=== PATIENT | male | born 1960 | race Caucasian/White ===

== ENCOUNTER 2017-04-14 10:56 | Emergency (ER) | payer BC ==
--- NOTE | 2017-04-14 11:42 | RAD ---
LEFT KNEE 4 VIEWS: HISTORY: A 56-year-old male with spontaneous left knee pain for 2 weeks without known trauma. FINDINGS: No fracture or dislocation. Mild degenerative changes. IMPRESSION: Unremarkable left knee. POS: C
== END 2017-04-14 12:08 | disposition home or self-care (01) ==
LOC: SCSER 10:56
DX: M25.562 Pain in left knee (principal); I10 Essential (primary) hypertension; G47.30 Sleep apnea, unspecified; Z79.899 Other long term (current) drug therapy

== ENCOUNTER 2017-08-25 15:17 | Inpatient (IN) | payer BC ==
[~2017-08-25 15:17] MED LIST: ISOVUE-370 76%-LOCM 1 ML ONE
[2017-08-25 15:56] LABS: #Eosinphils 0.1 thou/uL (0.0-0.7); #Lymphocytes 1.3 thou/uL (1.20-3.40); #Monocytes 0.9 thou/uL (0.11-0.59); #Neutrophils 7.1 thou/uL (1.40-6.50); %Basophils 0.2 % (0.0-1.0); %Eosinophils 0.7 % (0.0-10.0); %Lymphocytes 13.7 % (21.0-51.0); %Neutrophils 75.4 % (42.0-75.0); Hemoglobin 14.3 g/dL (14.0-18.0); Mean Corpuscular HGB CONC 34.3 g/dL (32.0-36.0); Mean Corpuscular Hemoglobin 32.6 pg (27.0-31.0); Mean Corpuscular Volume 95.1 fl (80.0-94.0); Mean Platelet Volume 7.8 fL (7.4-10.4); Platelet Count 158 thou/uL (130-400); RBC Distribution Width 11.8 % (11.5-14.5); White Blood Cell (WBC) Count 9.4 thou/uL (4.8-10.8)
[2017-08-25] MEDS ORDERED: Fentanyl 100 MCG/2 ML VIAL ONE ×2 (16:04→20:14)
[2017-08-25 16:19] LABS: ALT (SGPT) 28 U/L (8-55); AST (SGOT) 29 U/L (5-34); Alkaline Phosphatase 58 U/L (40-150); Anion Gap 11 mmol/L (10-20); BUN (Urea Nitrogen) 17 mg/dL (8.4-25.7); Bilirubin, Total 2.2 mg/dL (0.2-1.2); Calc. Creatinine Clearance 0 mL/min (70-130); Calcium 8.9 mg/dL (7.8-10.44); Carbon Dioxide 22 mmol/L (22-29); Chloride 106 mmol/L (98-107); Estimated GFR-MDRD Greater than 90; Globulin 3.1 g/dL (2.4-3.5); Glucose 121 mg/dL (70-105); Lipase 4 U/L (8-78); Protein, Total 7.1 g/dL (6.0-8.3); Sodium 135 mmol/L (136-145)
[2017-08-25 16:28] LABS: Bilirubin Small (Negative); Blood, Urine Negative (Negative); Clarity CLEAR (Clear); Glucose, Urine (Dipstick) Negative (Negative); Leukocyte Small (Negative); Nitrite Negative (Negative); Protein, Urine (Dipstick) 30 mg/dL (Neg-Trace); Specific Gravity, Urine 1.031 (1.002-1.036)
[2017-08-25 16:30] LABS: Bacteria/HPF None Seen HPF (None Seen); Hyaline Casts/LPF 4-6 HYALINE CAST LPF (0-3 Hyaline); Pathc Cast-AUWi Flag 0.29 (0-2.49); RBC/HPF 0-3 HPF (0-3); Squamous Epithelial 0-3 HPF (0-3); WBC/HPF 0-3 HPF (0-3)
--- NOTE | 2017-08-25 18:23 | ULT ---
GALLBLADDER ULTRASOUND: HISTORY: Right upper quadrant pain. FINDINGS: Real-time imaging of the right upper quadrant was performed. Exam was technically difficult due to b owel gas and body habitus. The patient was unable to hold his breath. The gallbladder shows no evidence of stones. The common duct is in the 5 to 6 mm range. The liver i s of increased echogenicity with multiple hypoechoic masses. This is highly suspicious for metastati c disease. The right kidney is normal in size and is not obstructed. The pancreas is obscured. IMPRESSION: Fatty changes of the liver with hypoechoic masses, highly suspicious for metastatic disease. CT is r ecommended for assessment. Findings telephoned to Dr. Carrillo. CODE CR POS: [facility]
--- NOTE | 2017-08-25 18:46 | CT ---
ABDOMEN CT WITH CONTRAST: PELVIS CT WITH CONTRAST: HISTORY: Abdominal pain. COMPARISON: 12/26/2009 CORRELATION: Gallbladder ultrasound from 08/25/2017. TECHNIQUE: Abdomen and pelvis CT is performed with IV contrast. Enteric contrast was administered. Coronal ref ormatted images are submitted for interpretation. FINDINGS: Dependent atelectatic changes. Heart size is normal. No pericardial effusion. The descending thora cic aorta and abdominal aorta have a normal caliber. No periaortic fat stranding. Symmetric attenua tion of the psoas muscles. Intrahepatic and extrahepatic portal vein is patent. Unremarkable gallbl adder. Spleen, pancreas, and adrenal glands have appropriate enhancement. Symmetric enhancement of the kidneys. Bilaterally, no obstructive uropathy. No gastrohepatic, retrocrural, or periportal lymphadenopathy. No mesenteric mass, free air, or free fluid. There is a mass in the central abdominal mesentery, mary jo suring 3.4 x 2.3 cm, with small punctate calcification. The margins are somewhat irregular. There a re multiple enhancing lesions throughout the liver, which are accentuated by the generalized diffuse fatty infiltration of the liver. An enlarged off premise service representative lesion in the right hepatic lobe measure s 2.4 x 2.5 cm. The overall numbers of lesions are too small to characterize. Limited evaluation of the alimentary canal. Gastric mucosa, duodenum, and multiple normal caliber sm all bowel loops are noted. The ileocecal junction is normal. An appendix is not appreciated. There is scattered fecal material throughout a nondistended, nondilated colon. No colonic obstruction. O ccasional diverticulosis without evidence of diverticulitis. PELVIS: No mass, lymphadenopathy, free air, or free fluid. The urinary bladder is unremarkable. Mi ld hypertrophy of the prostate gland. No lytic or blastic lesions of the osseous structures. IMPRESSION: 1. Diffuse enhancing masses throughout the liver suggesting multifocal malignant lesions, worrisome for metastases until proven otherwise. These lesions are noted in an underlying liver that has exten sive hepatic steatosis. 2. Irregular, hypodense mass in the central abdominal mesentery, with a small punctate calcification . Malignant lesions versus enlarged metastatic lymph nodes is a differential consideration. POS: [facility]
[2017-08-25] MEDS ORDERED: Lisinopril/Hydrochlorothiazide 10 mg/12.5 mg Tablet PO SCH (20:00)
[2017-08-25] MEDS ORDERED: hydrALAZINE 20 MG/ML VIAL ONE (20:54)
[2017-08-25] MEDS ORDERED: hydrALAZINE 20 MG/ML VIAL SLOW IVP PRN (21:59)
[2017-08-25] MEDS ORDERED: cloNIDine 0.1 MG TAB PO PRN (21:59)
[2017-08-25] MEDS ORDERED: Ondansetron HCl/PF 4 MG/2 ML Vial IVP PRN ×2 (21:59→22:01)
[2017-08-25] MEDS ORDERED: Ondansetron ODT 4 MG TAB PO PRN (21:59)
[2017-08-25] MEDS ORDERED: Acetaminophen 500 MG TAB PO PRN (21:59)
[2017-08-25] MEDS ORDERED: Ondansetron ODT 4 MG TAB SL PRN (22:01)
[2017-08-25] MEDS ORDERED: Fentanyl 100 MCG/2 ML VIAL SLOW IVP PRN (22:02)
[2017-08-25] MEDS: Sodium Chloride 0.9% 1,000 ML IV SCH (22:28)
[2017-08-25 23:09] VITALS: BMI 41.3
[2017-08-26 04:41] LABS: ALT (SGPT) 24 U/L (8-55); AST (SGOT) 21 U/L (5-34); Albumin 3.6 g/dL (3.5-5.0); Alkaline Phosphatase 51 U/L (40-150); Anion Gap 8 mmol/L (10-20); BUN (Urea Nitrogen) 13 mg/dL (8.4-25.7); Bilirubin, Total 1.8 mg/dL (0.2-1.2); Calc. Creatinine Clearance 197 mL/min (70-130); Calcium 8.7 mg/dL (7.8-10.44); Carbon Dioxide 25 mmol/L (22-29); Chloride 106 mmol/L (98-107); Estimated GFR-MDRD Greater than 90; Globulin 2.9 g/dL (2.4-3.5); Glucose 117 mg/dL (70-105); Potassium 3.7 mmol/L (3.5-5.1); Protein, Total 6.5 g/dL (6.0-8.3); Sodium 135 mmol/L (136-145)
[2017-08-26 05:15] LABS: Eosinophils 1 % (0-10); Hemoglobin 13.4 g/dL (14.0-18.0); Lymphocytes 14 % (21-51); MDiff Complete? YES; Macrocytosis SLIGHT = 6-15 cells (100X) (0-5/hpf); Mean Corpuscular HGB CONC 34.1 g/dL (32.0-36.0); Mean Corpuscular Hemoglobin 32.5 pg (27.0-31.0); Mean Corpuscular Volume 95.4 fl (80.0-94.0); Mean Platelet Volume 7.8 fL (7.4-10.4); Monocytes 13 % (0-10); Neutrophil 65 % (42-75); PLT Morphology Comment Appears Adequate; Platelet Count 162 thou/uL (130-400); RBC Distribution Width 11.8 % (11.5-14.5); Reactive Lymphocytes 7 % (0-10); Red Blood Cell (RBC) Count 4.12 mill/uL (4.70-6.10); White Blood Cell (WBC) Count 8.2 thou/uL (4.8-10.8)
--- NOTE | 2017-08-26 05:58 | HP ---
DATE OF ADMISSION: 08/26/2017 PRIMARY CARE PROVIDER: Dr. Richey. CHIEF COMPLAINT: Abdominal pain. HISTORY OF PRESENT ILLNESS: This is a 56-year-old male, who presents to [facility] complaining of abdominal and back pain of 2-3 days' duration. The patient states he noticed increasing back pain progressing to abdominal pain in the last 24 hours without trauma, injur y, nausea or vomiting. The patient denied any recent travel history or change to bowel habits. The patient denied any weight loss or documented fever; however, he does states he feels warm when the ai r temperature is cool. The patient denied any lower extremity swelling or shortness of breath. The patient described the pain as sharp, in the right upper quadrant region with radiation to the back. The patient rated the pain as 8/10, intermittent and relieved without specific home remedies. The pa tient states he underwent colonoscopy 2-3 years prior to this evaluation without noted history of col on cancer. The patient denies any dysuria or frequent urinary tract infections. In the emergency ro om, the patient underwent comprehensive evaluation including CT of the abdomen and pelvis showing mul tiple hepatic lesions as well as some mesenteric lesion concerning for malignant process. Abdominal ultrasound also obtained on 08/25/2017 showed fatty changes of the liver with hypoechoic masses suspi cious for metastatic process in the liver. Emergency room treatment include fentanyl x2 doses in add ition to lisinopril/HCTZ and intravenous normal saline x1 liter. The patient was transferred to the medical oncology unit for further evaluation. PAST MEDICAL HISTORY: 1. Hypertension. 2. Obstructive sleep apnea. PAST SURGICAL HISTORY: 1. Status post ankle reconstruction. 2. Status post appendectomy. 3. Status post hernia repair x2. CURRENT MEDICATIONS: Lisinopril/HCTZ 10/12.5 mg 1 tab p.o. daily. ALLERGIES: MORPHINE SULFATE and BEE STINGS, causing anaphylaxis. FAMILY HISTORY: No inheritable diseases per patient report. SOCIAL HISTORY: The patient is , resides in [place], [place]. 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 Social alcohol use. No tobacco or illicit drug use. REVIEW OF SYSTEMS: The following complete review of systems was negative, unless otherwise mentioned in the HPI or below: Constitutional: Weight loss or gain, ability to conduct usual activities. Sk in: Rash, itching. Eyes: Double vision, pain. ENT/Mouth: Nose bleeding, neck stiffness, pain, te nderness. Cardiovascular: Palpitations, dyspnea on exertion, orthopnea. Respiratory: Shortness of breath, wheezing, cough, hemoptysis, fever or night sweats. Gastrointestinal: Poor appetite, abdom inal pain, heartburn, nausea, vomiting, constipation, or diarrhea. Genitourinary: Urgency, frequenc y, dysuria, nocturia. Musculoskeletal: Pain, swelling. Neurologic/Psychiatric: Anxiety, depressio n. Allergy/Immunologic: Skin rash, bleeding tendency. Otherwise negative except as stated per HPI. PHYSICAL EXAMINATION: VITAL SIGNS: On admission, blood pressure 192/97, pulse 97, respiratory rate 20, temperature 98.7, O 2 saturation 97% on room air. GENERAL APPEARANCE: This is a 56-year-old male, alert and oriented x3, pleasant, in no acu te distress. HEENT: Pupils are equal, round, and reactive to light and accommodation. Extraocular muscles are in tact. No scleral icterus, no conjunctival injection. Nares patent. OP is clear. Oral mucosa dry a ppearing. NECK: Supple, no cervical adenopathy, no thyromegaly, no carotid bruits, no JVD appreciated. Cervic al spine with full active and passive range of motion. CHEST: Lungs are clear to auscultation bilaterally. CARDIOVASCULAR: S1, S2 with tachycardia. ABDOMEN: Abdomen is obese. Bowel sounds are positive in all four quadrants. There is no palpable m ass. No rebound or guarding appreciated. Mild tenderness to palpation in the right upper quadrant. EXTREMITIES: Warm and dry with fair turgor. No clubbing, cyanosis or asymmetric edema appreciated. Pulses palpable distally at the dorsalis pedis, posterior tibial, and popliteal arteries bilaterally . Capillary refill less than 2 seconds. NEUROLOGIC: Cranial nerves II-XII are grossly intact. No focal or lateralizing signs appreciated. PERTINENT LABORATORY AND X-RAY FINDINGS: Basic metabolic profile within normal limits. Calcium 8.9, total bilirubin 2.2, AST 29, ALT of 28, alkaline phosphatase 58, albumin 4.0, lipase 4. CBC showed a white blood cell count of 9.4, hemoglobin 14, hematocrit 42, MCV 95, platelet count 158 with 75% ne utrophils. Urinalysis positive for protein and small leukocyte esterase. Abdominal ultrasound dated 08/25/2017 showed fatty changes in the liver with multiple hypoechoic masses, suspicious for metasta tic process. CT of the abdomen and pelvis dated 08/25/2017 showed diffuse enhancing masses throughou t the liver, suggesting multifocal malignant process. Extensive hepatic steatosis. Central abdomina l mesenteric mass noted. EKG dated 08/25/2017 by my interpretation shows sinus mechanism with heart rates in the 90s. Normal R-wave progression noted in the precordial leads. Normal axis. No acute S T-T wave changes appreciated. ASSESSMENT AND PLAN: 1. Intractable abdominal pain. The patient will be admitted to the oncology unit. Suspect patient' s presentation secondary to multiple hepatic lesions. Continue fentanyl 50 mcg IV q.2 hours p.r.n. p ain. Continue supportive measures. Consult GI Service for evaluation and comanagement. 2. Hepatic masses. Initial imaging including CT and ultrasound showing evidence of diffuse hepatic lesions concerning for metastatic process. We will consult GI Service for evaluation and considerati on of biopsy. 3. Hypertension. Resume home regimen to include lisinopril/HCTZ 10/12.5 mg daily. Continue serial blood pressure monitoring. 4. Hyperbilirubinemia. Suspect secondarily to #2. Monitor serial total bilirubin. 5. Prophylaxis. Sequential compression devices while in bed. Pepcid 20 mg IV q.12 hours. 6. Code status is FULL. Surrogate medical decision maker is patient's spouse.
[2017-08-26] MEDS: Famotidine 20 MG TAB PO SCH ×2 (08:11→20:16)
[2017-08-26] MEDS: Sodium Chloride 0.9% 1,000 ML IV SCH ×2 (08:12→16:33)
[2017-08-26 10:28] LABS: HBCM Index 0.07 S/CO (0-0.79); HBSAg Index 0.58 S/CO (0-0.99); Hep A IgM AB Non-Reactive (NonReactive); Hep B Surf Ag Non-Reactive S/CO (NonReactive); Hep C IgG Ab Non-Reactive (NonReactive); Hepatitis B Core IGM Abs Non-Reactive (NonReactive)
--- NOTE | 2017-08-26 11:09 | CT ---
CT OF CHEST PERFORMED WITH INTRAVENOUS CONTRAST ENHANCEMENT: HISTORY: Multiple liver masses noted on recent CT of the abdomen. Evaluation for possible primary source. FINDINGS: The lungs show some bibasilar atelectatic change. No pulmonary nodules are identified. No significa nt mediastinal or hilar adenopathy. No significant axillary adenopathy. No lytic or blastic bony change. Fatty changes of the liver with numerous small masses are noted. The right and left adrenal glands a re normal. IMPRESSION: No evidence of any pulmonary masses to be explained as a primary source of patient's multiple liver l esions. In reviewing the previous CT of the abdomen, the presence of a calcified mesenteric mass in conjunction with these liver masses would raise the possibility of carcinoid. Clinical correlation a s to whether the patient has carcinoid-type symptoms. POS: [facility]
[2017-08-26] MEDS: Fentanyl 100 MCG/2 ML VIAL SLOW IVP PRN ×2 (13:39→17:13)
[2017-08-26] MEDS ORDERED: Iopamidol 370 76% 100 ML VIAL ONE (15:06)
[2017-08-26 18:38] LABS: INR-International Normal Ratio 1.1; Prothrombin Time 13.9 SEC (12.0-14.7)
--- NOTE | 2017-08-26 20:52 | CON ---
DATE OF CONSULTATION: 08/26/2017 REASON FOR CONSULTATION: Liver lesions. HISTORY OF PRESENT ILLNESS: Mr. Lopez is a pleasant 56-year-old male who presented to the emergency room for acute onset abdominal pain that started approximately 2-3 days, it is located in the right upper quadrant, was not associated with eating, nausea, vomiting, diarrhea. He had an abdo moni ultrasound performed which showed hypoechoic mass is suspicious for metastatic disease. He the n had a CT of the abdomen and pelvis which showed multiple lesions throughout the liver. There was a right hepatic lobe lesion measuring 2.4 x 2.5 cm. There was also an irregular mass in the central a bdominal mesentery consistent with carcinoid. The patient had a colonoscopy approximately 4 years ag o which was normal. He denies any chest pain, shortness of breath. No loss of appetite, early satie ty or weight loss. PAST MEDICAL HISTORY: 1. Hypertension. 2. Sleep apnea. PAST SURGICAL HISTORY: 1. Ankle repair. 2. Appendectomy. 3. Hernia repair. HOME MEDICATIONS: Lisinopril/hydrochlorothiazide. ALLERGIES: MORPHINE. FAMILY HISTORY: No history of carcinoid. SOCIAL HISTORY: . Social alcohol. No tobacco or illicit drug use. REVIEW OF SYSTEMS: Twelve-point review of systems is negative except for noted in HPI. PHYSICAL EXAMINATION: VITAL SIGNS: Temperature is 98.1, pulse is 81, respiratory rate 18, BP is 165/107. He is 94% on hailey m air. GENERAL: This is an obese male in no acute distress. HEENT: Normocephalic, atraumatic. Pupils are equal and reactive to light. NECK: Supple. CARDIOVASCULAR: Regular rate and rhythm. LUNGS: Clear. ABDOMEN: Obese, nontender, bowel sounds are positive. EXTREMITIES: No clubbing, cyanosis or edema. SKIN: No rash. HEMATOLOGIC: No petechia or purpura. NEUROLOGIC: Nonfocal. PSYCHIATRIC: The patient is alert and oriented and appropriate. PERTINENT LABORATORY AND X-RAYS: Current WBCs are 8.2, hemoglobin 13.4, hematocrit 39.3, platelet co unt is 162,000. He has got 75% neutrophils, 13% lymphocytes. Sodium is 135, potassium 3.7, chloride 106, CO2 is 25, BUN is 13, creatinine 0.87, calcium is 8.7, bilirubin is 1.8, AST is 21, ALT is 24, alkaline phosphatase is 51. Serum total protein is 6.5, albumin 3.6, globulin 2.9, lipase is 4. Uri ne is negative for bacteria. Hepatitis panel is normal. Chest CT was negative for any mass or lesio ns in the lungs. He did confirm the liver lesions. IMPRESSION: 1. Metastatic liver lesion. 2. Mesenteric mass. DISCUSSION: The case was discussed with radiologist, Dr. Duarte. Patient will have a CT-guided bi opsy of the liver lesion tomorrow morning, further recommendations will be based on those results. Lyssa I just has been consulted to see the patient. Thank you for the consult.
--- NOTE | 2017-08-26 21:03 | CON ---
DATE OF CONSULTATION: 08/26/2017 GI INPATIENT CONSULTATION NOTE REQUESTING PHYSICIAN: Dr. Uribe. REASON FOR CONSULTATION: Liver masses. HISTORY OF PRESENT ILLNESS: Tam Lopez is a 56-year-old man previously seen by my GI colleague, Dr. Elpidio Alvarado. Back in 08/2013, Dr. Alvarado performed EGD and colonoscopy. He had findings of LA grade B esophagitis with otherwise normal EGD and 3 small colon polyps, which were all removed. The patient relates no chronic gastrointestinal symptoms. For several months, he has had some back pain which was never real severe, but now just over the past 2-3 days, he had an acute worsening of his back pain and it began to involve his right upper quadrant, it is sharp and nearly constant and o ften severe. There has been no associated fever or weight loss. No nausea or vomiting and no change in bowel habits, melena or hematochezia. In the Emergency Department, he underwent imaging evaluati on. Abdominal ultrasound demonstrated multiple liver masses and so a CT of the abdomen and pelvis wa s performed and this demonstrated not only multiple liver lesions, but also a central mesenteric mass measuring 3.4 cm, suspicious for carcinoid tumor. The patient is currently receiving fentanyl with modest efficacy for his pain. He has been evaluated by Oncology and CT-guided biopsy of one of the l iver mass is planned for tomorrow. REVIEW OF SYSTEMS: Full review of systems including constitutional, head, eyes, ears, nose, throat, GI, , cardiovascular, respiratory, musculoskeletal, and neurologic systems is negative except as no silvestre in the HPI. PAST MEDICAL HISTORY: Hypertension, obesity, obstructive sleep apnea, appendectomy, hernia repair, c olon polyps removed in 08/2013, esophagitis on EGD in 08/2013. ALLERGIES: MORPHINE and BEE STINGS. OUTPATIENT MEDICATIONS: Lisinopril/hydrochlorothiazide. FAMILY HISTORY: Noncontributory. SOCIAL HISTORY: Alcohol use is social. No tobacco or drug use. PHYSICAL EXAMINATION: VITAL SIGNS: Temperature 98.1, pulse 81, blood pressure 165/107, 94% oxygen saturation on room air. GENERAL: A 56-year-old man sitting up in bed comfortably, in mild distress from abdominal pain. SKIN: No jaundice, no rash visible or palpable. EYES: No scleral icterus. Extraocular movements intact. ENT: Mucous membranes moist, no oral lesions. LYMPH: No submandibular, supraclavicular lymphadenopathy. THYROID: Nontender to palpation. HEART: Regular rate and rhythm. LUNGS: Clear to auscultation bilaterally. ABDOMEN: Obese, bowel sounds present, soft. Tender to palpation in the right upper quadrant. No gu arding, rebound tenderness. EXTREMITIES: No peripheral edema. VESSELS: Radial pulses 2+ bilaterally. NEUROLOGICAL: Cranial nerves II-XII intact bilaterally. No focal deficits. LABORATORY STUDIES: WBC 8.2, hemoglobin 13.4, platelets 162, BUN 13, creatinine 0.83, total bilirubi n 1.8, alkaline phosphatase 51, AST 21, ALT 24, albumin 3.6. Viral hepatitis serology is negative. IMAGING STUDIES: Abdominal ultrasound showed fatty liver and multiple masses suspicious for metastat ic disease. Gallbladder was normal. CT of the abdomen and pelvis demonstrated a central mesenteric mass measuring 3.4 x 2.3 cm with calcification suspicious for possible carcinoid tumor. There are mu ltiple liver lesions including one large lesion in the right hepatic lobe measuring 2.5 cm. Bowel ap pears normal. CT chest demonstrated no pulmonary mass. ASSESSMENT AND PLAN: 1. Mesenteric mass, concerning for possible carcinoid tumor. 2. Multiple liver masses, consistent with metastatic liver disease. 3. Right upper quadrant pain. The patient's overall presentation and imaging findings are most susp icious for a carcinoid tumor with metastatic disease. Tumor markers are pending and I have added CEA to this. Given that he had essentially negative EGD and colonoscopy in 2014, and the appearance on CT, I do not think there would be much to be gained by repeating endoscopic examination at this time. I appreciate Oncology recommendations and they have arranged for a CT guided biopsy of one of his l iver lesions tomorrow, and I agree with this plan. GI will follow along. Thank you for the consultation. Please call with questions or concerns.
--- NOTE | 2017-08-27 00:19 | PDOC.PN ---
- Subjective Encounter Start Date: 08/26/17 Encounter Start Time: 11:00 Subjective: pt up in bed still has pain to his RUQ - Objective Resuscitation Status: Resuscitation Status FULL:Full Resuscitation Vital Signs & Weight: Vital Signs (12 hours) Temp Pulse Resp BP Pulse Ox 08/26/17 23:39 99 F 87 16 166/83 H 93 L 08/26/17 19:53 98.2 F 73 16 94 L 08/26/17 19:29 98.2 F 73 16 173/92 H 94 L 08/26/17 16:32 81 08/26/17 16:10 98.2 F 78 22 H 158/92 H 94 L 08/26/17 12:20 98.1 F 81 18 165/107 H 94 L Weight Weight 305 lb 4 oz I&O: 08/25/17 08/26/17 08/27/17 06:59 06:59 06:59 Intake Total 240 877 Balance 240 877 Result Diagrams: 08/26/17 04:11 08/26/17 04:11 Dx/Plan - Plan * .
[2017-08-27] MEDS: Sodium Chloride 0.9% 1,000 ML IV SCH ×2 (04:09→15:01)
[2017-08-27 05:47] LABS: #Eosinphils 0.3 thou/uL (0.0-0.7); #Lymphocytes 1.4 thou/uL (1.20-3.40); #Monocytes 0.9 thou/uL (0.11-0.59); #Neutrophils 4.8 thou/uL (1.40-6.50); %Basophils 0.4 % (0.0-1.0); %Eosinophils 3.6 % (0.0-10.0); %Lymphocytes 19.3 % (21.0-51.0); %Monocytes 11.6 % (0.0-10.0); %Neutrophils 65.1 % (42.0-75.0); Hemoglobin 13.6 g/dL (14.0-18.0); Mean Corpuscular HGB CONC 32.8 g/dL (32.0-36.0); Mean Corpuscular Hemoglobin 31.3 pg (27.0-31.0); Mean Corpuscular Volume 95.4 fl (80.0-94.0); Mean Platelet Volume 7.9 fL (7.4-10.4); Platelet Count 173 thou/uL (130-400); RBC Distribution Width 11.7 % (11.5-14.5); Red Blood Cell (RBC) Count 4.34 mill/uL (4.70-6.10); White Blood Cell (WBC) Count 7.3 thou/uL (4.8-10.8)
[2017-08-27 05:55] LABS: INR-International Normal Ratio 1.1; Prothrombin Time 14.1 SEC (12.0-14.7)
[2017-08-27 05:56] LABS: PTT 32.6 SEC (22.9-36.1)
--- NOTE | 2017-08-27 07:46 | PDOC.PN ---
- Subjective Encounter Start Date: 08/27/17 Encounter Start Time: 07:44 Subjective: adequate analgesia for pain - Objective Resuscitation Status: Resuscitation Status FULL:Full Resuscitation MAR Reviewed: Yes Vital Signs & Weight: Vital Signs (12 hours) Temp Pulse Resp BP Pulse Ox 08/27/17 07:31 97.6 F 72 20 171/97 H 94 L 08/27/17 04:18 98.1 F 84 16 142/93 H 94 L 08/26/17 23:39 99 F 87 16 166/83 H 93 L 08/26/17 19:53 98.2 F 73 16 94 L Weight Weight 306 lb 6 oz I&O: 08/26/17 08/27/17 08/28/17 06:59 06:59 06:59 Intake Total 240 2327 Balance 240 2327 Result Diagrams: 08/27/17 05:17 08/26/17 04:11 Phys Exam - Physical Examination Respiratory: no rales Cardiovascular: RRR, no significant murmur Gastrointestinal: soft, non-tender Musculoskeletal: no edema Dx/Plan (1) Abdominal pain Code(s): R10.9 - UNSPECIFIED ABDOMINAL PAIN Status: Acute Qualifiers: Abdominal location: generalized Qualified Code(s): R10.84 - Generalized abdominal pain (2) Liver metastases Code(s): C78.7 - SECONDARY MALIG NEOPLASM OF LIVER AND INTRAHEPATIC BILE DUCT Status: Acute (3) HTN (hypertension) Code(s): I10 - ESSENTIAL (PRIMARY) HYPERTENSION Status: Acute Qualifiers: Hypertension type: essential hypertension Qualified Code(s): I10 - Essential (primary) hypertension (4) Abdominal mass Code(s): R19.00 - INTRA-ABD AND PELVIC SWELLING, MASS AND LUMP, UNSP SITE Status: Acute - Plan cont analgesia -: Bx today -: FU post Bx * .
[2017-08-27] MEDS: Famotidine 20 MG TAB PO SCH (08:03)
[2017-08-27 09:51] LABS: Alpha-Fetoprotein,Tumor Marker Less than 2.0 ng/mL (0.89-8.78); Cancer Antigen - CA 125 14.4 U/mL (Less than 35)
[2017-08-27] MEDS ORDERED: Fentanyl 100 MCG/2 ML VIAL ONE (10:41)
[2017-08-27] MEDS ORDERED: Midazolam HCl 2 mg/2 ml Vial ONE (10:41)
[2017-08-27 12:09] VITALS: BP 154/99; TEMP 98
--- NOTE | 2017-08-27 13:39 | CT ---
CT GUIDED LIVER MASS BIOPSY: Date: 08/27/17 CONSCIOUS SEDATION: 2 mg Versed, IV. 100 mcg Fentanyl, IV> FINDINGS: After explaining the procedure and answering al questions, limited CT imaging of the abdomen was perf ormed. Anterior approach to the left lobe was planned. Sterile technique, buffered local anesthesia, conscious sedation, CT guidance, and an anterior approach were used to carefully advance a 17 gauge t rocar needle to the hyperdense mass within the lateral segment left liver lobe. Position was confirme d with CT. A total of two 18 gauge core biopsy specimens were obtained and submitted to Dr. Monroy from pathology, who confirmed specimen adequacy. Needle was removed. Postprocedure imaging shows no evidence of complication. The patient tolerated th e procedure well and was returned in unchanged condition. IMPRESSION: Technically successful CT guided liver mass biopsy. Pathology is pending. POS: [facility]
[2017-08-27] MEDS: Fentanyl 100 MCG/2 ML VIAL SLOW IVP PRN (14:58)
--- NOTE | 2017-08-27 15:46 | DIS ---
DATE OF ADMISSION: 08/25/2017 DATE OF DISCHARGE: 08/27/2017 DISPOSITION: Discharged home. PRIMARY CARE PROVIDER: Mathew Richey M.D. FINAL DIAGNOSES: Abdominal mass, liver metastases, hypertension, and abdominal pain. DISCHARGE MEDICATIONS: Usual home medications, lisinopril/hydrochlorothiazide 10/12.5 one a day. ALLERGIES: MORPHINE. DIET: Heart healthy. PENDING AT THE TIME OF DISCHARGE: Liver biopsy. HOSPITAL COURSE: The patient admitted with abdominal pain, history of hypertension. Initial workup revealed hepatic masses, elevated bilirubin. Laboratory: CBC: White count 9.4, hemoglobin 14.3, pl atelet count 156,000. INR 1.1, PTT 32.6. His bilirubins were elevated at 2.2 and 1.8; however, méndez saminases, alkaline phosphatase were negative. Consultations were obtained with Paris Prescott, Oncolo gy; Adria Bear, Gastroenterology. On 08/27/2017, he had a CT-guided liver biopsy which is pending. Patient's hepatitis panel was negative. He is being discharged. I have given him protracted list of signs and symptoms for complication of his liver biopsy and to return to the emergency room for prob lems. He has oncology's card and will call them tomorrow about arranging for appointment Friday for followup.
== END 2017-08-27 16:12 | disposition home or self-care (01) | DRG 436 ==
LOC: ERS 15:17 → ONC 20:20
PROVIDERS: ADMIT Internal Medicine; ATTEND Internal Medicine
PROC: 0FB23ZX Excision of Left Lobe Liver, Percutaneous Approach, Diagnostic (ICD-10-PCS; principal; 2017-08-27)
DX: C78.7 Secondary malignant neoplasm of liver and intrahepatic bile duct (principal); C48.1 Malignant neoplasm of specified parts of peritoneum; I10 Essential (primary) hypertension; E80.6 Other disorders of bilirubin metabolism; G47.33 Obstructive sleep apnea (adult) (pediatric); Z88.5 Allergy status to narcotic agent
CPT/HCPCS: 36415; 47000; 71260; 74177; 76705; 77002; 80053; 80074; 81003; 81015; 82105; 82378; 83690; 85007; 85025; 85027; 85049; 85610; 85730; 86301; 86304; 88307; 88333; 88341; 88342; 88360; 93005; 96361; 96374; 96376; 99152; 99153; A4216; J0360; J2250; J3010

== ENCOUNTER 2017-12-25 07:56 | Outpatient (CLI) | payer BC ==
--- NOTE | 2017-12-25 11:37 | CT ---
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 Comparison: 08-25-17 Technique: IV contrast: Not administered Oral contrast: Administered It is presumed that this was ordered without IV contrast because of renal compromise. FINDINGS: To the right of midline near the central portion of the mesentery, there is a mass with irregular sha pe and irregular margins. The irregular shape makes measurement of dimensions somewhat arbitrary. Marquita surements based on somewhat arbitrary placement of cursers for the purposes of this report will be 4. 1 x 2.1 x 2.1 cm. It has not significantly changed in size since 08-25-17. Directly anterior and superi or to that, there is a smaller satellite nodule which was previously 1.9 x 1.0 x 1.0 cm. It is curren tly 1.9 x 1.3 x 1.1 cm, slightly larger. Again noted is the very large number of small metastatic lesions throughout the liver, able to be see n on a noncontrast scan because they stand out against the background of diffusely fatty liver. Of the very many hepatic metastatic lesions, at least some appear to have increased in size. For exam ple, a mass in hepatic segment 7 of the right lobe that previously measured approximately 2 x 1.7 x 1 .6 cm currently measures 2.2 x 2.4 x 2.1 cm (current axial image 20 of 100, series 2; coronal 87 of 1 83, series 602). There is oral contrast material within nondilated stomach, small intestine, and colon. Apparent mural thickening of the rectum noted on the current CT, new since the prior study. No colonic diverticulit is. Mildly enlarged prostate gland. Incompletely distended urinary bladder. High density material lorenza ng the left inguinal canal and adjacent lower-most anterior abdominal wall. No small bowel dilation. No abdominal aortic aneurysm. No renal, ureteral or bladder calculus. No hydronephrosis. No splenomeg dulce. No abdominal aortic aneurysm. No major pathology of adrenals or pancreas identified. No destructive osseous lesion. Lung bases are grossly clear. No ascites or pneumoperitoneum. IMPRESSION: 1. The main tumor in the mesentery to the right of midline, presumably representing the main carcinoi d tumor, has not significantly changed in size. 2. However, the adjacent satellite nodule slightly anterior to it, either a satellite tumor or enlarg ed mesentery lymph node, is minimally larger than before. 3. Innumerable hepatic metastases. These have probably mildly increased in size. 4. Apparent mural thickening of the rectum. Uncertain rather this is real or due to incomplete disten tion. POS: [facility]
== END 2017-12-25 07:57 | disposition home or self-care (01) ==
LOC: SCSCT 07:56
PROVIDERS: ATTEND Internal Medicine Hematology & Oncology
DX: C7B.02 Secondary carcinoid tumors of liver (principal)
CPT/HCPCS: 74176

== ENCOUNTER 2018-01-23 21:29 | Emergency (ER) | payer BC ==
[2018-01-23] MEDS ORDERED: Metoclopramide HCl 10 MG/2 ML VIAL ONE (21:52)
[2018-01-23] MEDS ORDERED: diphenhydrAMINE 50 MG/ML VIAL ONE (21:52)
[2018-01-23] MEDS ORDERED: Ketorolac Tromethamine 30 MG/ML VIAL ONE (22:30)
== END 2018-01-23 23:03 | disposition home or self-care (01) ==
LOC: SCSER 21:29
DX: R51 Headache (principal); I10 Essential (primary) hypertension; G47.30 Sleep apnea, unspecified; Z79.899 Other long term (current) drug therapy
CPT/HCPCS: 96365; 96375; J1200; J1885; J2765

== ENCOUNTER 2019-05-12 12:39 | Emergency (ER) | payer BC ==
[2019-05-12 13:11] LABS: #Eosinphils 0.1 thou/uL (0.0-0.7); #Lymphocytes 1.2 thou/uL (1.20-3.40); #Monocytes 0.9 thou/uL (0.11-0.59); #Neutrophils 6.9 thou/uL (1.40-6.50); %Basophils 0.3 % (0.0-1.0); %Eosinophils 1.3 % (0.0-10.0); %Lymphocytes 13.6 % (21.0-51.0); %Monocytes 9.4 % (0.0-10.0); %Neutrophils 75.5 % (42.0-75.0); Hemoglobin 15.9 g/dL (14.0-18.0); Mean Corpuscular HGB CONC 34.3 g/dL (32.0-36.0); Mean Corpuscular Hemoglobin 32.9 pg (27.0-31.0); Mean Corpuscular Volume 95.9 fL (78.0-98.0); Mean Platelet Volume 8.7 fL (7.4-10.4); Platelet Count 238 thou/uL (130-400); RBC Distribution Width 11.6 % (11.5-14.5); Red Blood Cell (RBC) Count 4.83 mill/uL (4.70-6.10); White Blood Cell (WBC) Count 9.1 thou/uL (4.8-10.8)
[2019-05-12 13:31] LABS: ALT (SGPT) 26 U/L (8-55); AST (SGOT) 24 U/L (5-34); Albumin 4.3 g/dL (3.5-5.0); Alkaline Phosphatase 72 U/L (40-110); Anion Gap 14 mmol/L (10-20); BUN (Urea Nitrogen) 25 mg/dL (8.4-25.7); Bilirubin, Total 1.5 mg/dL (0.2-1.2); Calc. Creatinine Clearance 0 mL/min (70-130); Calcium 9.5 mg/dL (7.8-10.44); Carbon Dioxide 30 mmol/L (22-29); Chloride 97 mmol/L (98-107); Estimated GFR-MDRD 51; Globulin 4.1 g/dL (2.4-3.5); Glucose 132 mg/dL (70-105); Lipase 4 U/L (8-78); Magnesium 2.5 mg/dL (1.6-2.6); Protein, Total 8.4 g/dL (6.0-8.3); Sodium 137 mmol/L (136-145)
[2019-05-12] MEDS ORDERED: Ondansetron PF 4 MG/2 ML Vial ONE (13:37)
[2019-05-12] MEDS ORDERED: Fentanyl 100 MCG/2 ML VIAL ONE ×2 (13:38→15:10)
--- NOTE | 2019-05-12 14:41 | ULT ---
EXAM: RIGHT UPPER QUADRANT ULTRASOUND: 05/12/19 HISTORY: Liver is heterogeneously hyperechoic evidence for fatty change. There are numerous poorly circumscrib ed masses within the right and left lobes of the liver up to 5.5 cm involving the left lobe. These ma sses have increased in size from the prior study of 08/25/17. The gallbladder is borderline distended b ut no gallstones or gallbladder wall thickening. Common bile duct 0.6 cm. The visualized pancreas an d right kidney are unremarkable. No evidence for ascites. IMPRESSION: Extensive masses within right and left lobes of the liver increased in size, evidence for metastasis. Fatty changes in the liver. No evidence of gallstones, wall thickening or pericholecystic fluid. POS: [facility]
== END 2019-05-12 15:55 | disposition home or self-care (01) ==
LOC: ERS 12:39
DX: R16.0 Hepatomegaly, not elsewhere classified (principal); R11.0 Nausea; I10 Essential (primary) hypertension; G47.30 Sleep apnea, unspecified
CPT/HCPCS: 36415; 76705; 80053; 83605; 83690; 83735; 85025; 94760; 96361; 96374; 96375; 96376; J2405; J3010

== ENCOUNTER 2019-05-31 11:37 | Emergency (ER) | payer BC ==
[2019-05-31 12:12] LABS: #Eosinphils 0.3 thou/uL (0.0-0.7); #Lymphocytes 1.1 thou/uL (1.20-3.40); #Monocytes 0.8 thou/uL (0.11-0.59); %Basophils 0.4 % (0.0-1.0); %Eosinophils 3.3 % (0.0-10.0); %Lymphocytes 13.8 % (21.0-51.0); %Monocytes 9.7 % (0.0-10.0); %Neutrophils 72.8 % (42.0-75.0); Hemoglobin 14.7 g/dL (14.0-18.0); Mean Corpuscular Hemoglobin 31.6 pg (27.0-31.0); Mean Platelet Volume 7.3 fL (7.4-10.4); Platelet Count 381 thou/uL (130-400); RBC Distribution Width 11.4 % (11.5-14.5); Red Blood Cell (RBC) Count 4.64 mill/uL (4.70-6.10); White Blood Cell (WBC) Count 8.2 thou/uL (4.8-10.8)
[2019-05-31 12:39] LABS: ALT (SGPT) 33 U/L (8-55); AST (SGOT) 21 U/L (5-34); Albumin 4.1 g/dL (3.5-5.0); Alkaline Phosphatase 88 U/L (40-110); Anion Gap 14 mmol/L (10-20); BUN (Urea Nitrogen) 23 mg/dL (8.4-25.7); Bilirubin, Total 0.7 mg/dL (0.2-1.2); Calc. Creatinine Clearance 0 mL/min (70-130); Calcium 9.9 mg/dL (7.8-10.44); Carbon Dioxide 28 mmol/L (22-29); Chloride 97 mmol/L (98-107); Estimated GFR-MDRD 53; Globulin 4.6 g/dL (2.4-3.5); Glucose 120 mg/dL (70-105); Lipase 10 U/L (8-78); Potassium 4.2 mmol/L (3.5-5.1); Protein, Total 8.7 g/dL (6.0-8.3); Sodium 135 mmol/L (136-145)
[2019-05-31 12:57] LABS: Bacteria/HPF None Seen HPF (None Seen); Bilirubin Negative (Negative); Blood, Urine Negative (Negative); Clarity Clear (Clear); Glucose, Urine (Dipstick) Normal (Negative); Leukocyte Negative Leu/uL (Negative); Mucous/LPF 1+ LPF (<2+); Nitrite Negative (Negative); Protein, Urine (Dipstick) 50 mg/dL (Neg-Trace); RBC/HPF 0-3 HPF (0-3); Squamous Epithelial 0-3 HPF (0-3); Urobilinogen 3 mg/dL (Less than 2)
[2019-05-31] MEDS ORDERED: Ondansetron PF 4 MG/2 ML Vial ONE (14:16)
[2019-05-31] MEDS ORDERED: HYDROmorphone 0.5 MG/0.5 ML SYRINGE ONE ×2 (14:20→17:17)
[2019-05-31] MEDS ORDERED: Iopamidol-370 76% 500 ML 1 ML ONE (14:55)
--- NOTE | 2019-05-31 15:32 | CT ---
CTA Angio Chest W WO Con History: Chest pain Comparison: Chest CT August 2017 Findings: CT angiogram chest performed after the intravenous administration of contrast. 3-D renderin g provided. No proximal segmental pulmonary arterial filling defect. No pericardial effusion. No mediastinal adenopathy. Aortic contour is normal. The lungs are without focal confluent airspace consolidation, pneumothorax, or effusion. Scarring bot h lung bases. Asymmetric degenerative disease right worse than left sternoclavicular joint degeneration. No acute displaced rib fracture. Please see CT abdomen and pelvis for findings below the diaphragm. Impression: 1. No pulmonary embolism. 2. No acute intrathoracic abnormality. 3. Please see abdomen pelvis CT for findings below the diaphragm.
--- NOTE | 2019-05-31 15:51 | CT ---
CT abdomen and pelvis with IV contrast HISTORY: Abdomen pain. Carcinoid tumor with metastases. COMPARISON: 12/25/2017. FINDINGS: Mild scarring at the right posterior lung base. Very heterogeneous density throughout the l iver. Scattered, partially obscured rounded and oval low density masses are again demonstrated. Given the widespread nature of the masses, exact comparison to the prior study is not helpful, as the liver is diffusely involved. The somewhat irregular and heterogeneous mass centered within the central mesentery is again demonstr ated. Measurements on today's exam are at oblique planes. The lesion contains a coarse calcification along the inferior margin, unchanged in appearance from the prior study. Greatest obliq ue length on the coronal images is 3.2 cm. Axial images show greatest width 2.7 cm and depth 1.8 cm. Appearance overall is not changed from the 2018 exam. No free fluid or free air. No evidence of bowel obstruction. Diverticula arise from the colon without adjacent inflammation. There are prominent degenerative changes of the lumbar spine. Significant central canal stenosis at the L1-2 level. IMPRESSION: CT findings of central mesenteric carcinoid tumor and severe liver metastatic disease are not significantly changed from the 12/25/2017 CT. Diverticulosis. No evidence of diverticulitis.
== END 2019-05-31 17:36 | disposition short-term general hospital (02) ==
LOC: ERS 11:37
DX: C22.9 Malignant neoplasm of liver, not specified as primary or secondary (principal); D3A.019 Benign carcinoid tumor of the small intestine, unspecified portion; G47.30 Sleep apnea, unspecified; F32.9 Major depressive disorder, single episode, unspecified; I10 Essential (primary) hypertension; Z79.891 Long term (current) use of opiate analgesic; Z79.899 Other long term (current) drug therapy
CPT/HCPCS: 36415; 71275; 74177; 80053; 81003; 81015; 83690; 85025; 93005; 94760; 96361; 96374; 96375; 96376; J1170; J2405; Q9967

== ENCOUNTER 2019-06-14 09:26 | Outpatient (CLI) | payer BC ==
--- NOTE | 2019-06-14 12:12 | CT ---
CT ABDOMEN AND PELVIS PERFORMED WITH IV CONTRAST ENHANCEMENT: Date: 06/14/2019 HISTORY: Carcinoid tumor of small intestine with metastatic disease to the liver. COMPARISON: 05/31/2019, 12/25/2017, and 08/25/2017 exams. FINDINGS: CT ABDOMEN: The lung bases are clear of infiltrates or pulmonary nodules. There is some atelectasis in the right base. There are innumerable liver lesions identified. This is on a background of fatty change and somewhat difficult to assess. In reviewing the 08/25/2017 study, these lesions more homogeneously enhance, and now several of these have low attenuation areas centrally which may indicate therapeutic response. T his change also appears more prominent as compared to the recent 05/31/2019 exam. Size comparison is difficult. Some of the areas appear larger, but it also that they are better defined due to their low attenuation change. The spleen, pancreas, and pancreas region appears unremarkable. Right and left adrenal glands, and right and left kidneys are normal in size. A lymph node just anterior to the aorta measuring 10.0 mm in size seen on axial 51 is stable. The mesenteric mass which has some associated calcification is also felt to be stable. There is a per ipheral satellite nodule just anterior and slightly medial to this area. I do not see this density, b ut there is a similar size density which is now more directly over the lesion and may just represent a change in position in this actual satellite nodule without a definite change. CT PELVIS: There is no pelvic lymphadenopathy or mass. IMPRESSION: 1. Innumerable liver lesions on a background of fatty change. There has been a change in the charact eristics of these lesions, now they have more prominent central decreased attenuation even when venita red to the recent 05/31/2019 study. This could indicate therapeutic response. Some of them appear lar [place], but it is very difficult to directly compare as the lesions now are somewhat better seen due to the central low attenuation. I would favor that this does represent therapeutic response. 2. Essentially stable appearance to the mesenteric lesion as described above and the lymph node dire ctly anterior to the aorta. POS: [facility]
== END 2019-06-14 09:27 | disposition home or self-care (01) ==
LOC: SCSCT 09:26
PROVIDERS: ATTEND Internal Medicine Hematology & Oncology
DX: C7A.019 Malignant carcinoid tumor of the small intestine, unspecified portion (principal); C7B.02 Secondary carcinoid tumors of liver
CPT/HCPCS: 74177

== ENCOUNTER 2023-05-23 12:22 | Outpatient (CLI) | payer BC ==
[2023-05-23] MEDS ORDERED: Sterile Water 10 ML ONE (15:08)
[2023-05-23] MEDS ORDERED: Bacteriostatic Normal Saline 30 ML VIAL ONE (15:09)
== END 2023-05-23 12:23 | disposition home or self-care (01) ==
LOC: NM 12:22
PROVIDERS: ATTEND Surgery
DX: R10.9 Unspecified abdominal pain (principal); R93.2 Abnormal findings on diagnostic imaging of liver and biliary tract
CPT/HCPCS: 78227; A9537